=== PATIENT | male | born 1990 | race Two or more races ===

== ENCOUNTER 2020-05-21 13:55 | Emergency (ER) | payer OTHER ==
[~2020-05-21] VITALS: Ht 160 cm; Wt 70.3 kg
[2020-05-21 14:05] VITALS: BP 114/81
== END 2020-05-21 16:17 | disposition home or self-care (01) ==
LOC: ER 13:55
DX: S60.221A Contusion of right hand, initial encounter (principal); W51.XXXA Accidental striking against or bumped into by another person, initial encounter; Y93.89 Activity, other specified; Y92.89 Other specified places as the place of occurrence of the external cause; Y99.8 Other external cause status
CPT/HCPCS: 73130

== ENCOUNTER 2020-09-06 21:48 | Emergency (ER) | payer OTHER ==
[~2020-09-06] VITALS: Ht 160 cm; Wt 70.3 kg
[2020-09-06 21:50] VITALS: BP 125/89
== END 2020-09-06 23:32 | disposition home or self-care (01) ==
LOC: ER 21:49
DX: H00.14 Chalazion left upper eyelid (principal); F12.10 Cannabis abuse, uncomplicated